=== PATIENT | female | born 1990 | race Hispanic/Latino ===

== ENCOUNTER 2017-01-16 21:31 | Emergency (ER) | payer OTHER, MEDICAID ==
[~2017-01-16] VITALS: Ht 172.7 cm; Wt 90.0 kg
[2017-01-16] MEDS ORDERED: PERCOCET 5/325M1 TAB PO (23:39)
[2017-01-16 23:41] VITALS: BP 130/60
== END 2017-01-16 23:55 | disposition home or self-care (01) | DRG 552 ==
LOC: ED 21:31
DX: S16.1XXA Strain of muscle, fascia and tendon at neck level, initial encounter (principal); S40.012A Contusion of left shoulder, initial encounter; V53.5XXA Driver of pick-up truck or van injured in collision with car, pick-up truck or van in traffic accident, initial encounter